=== PATIENT | male | born 1945 | race Caucasian/White ===

== ENCOUNTER 2018-03-13 07:27 | Inpatient (IN) | payer BC, OTHER ==
[2018-03-04 12:28] VITALS: BMI 29.2
[2018-03-13] MEDS ORDERED: TRANEXAMIC ACID 1000 MG/10 ML VIAL IVPUSH ONE (08:08)
--- NOTE | 2018-03-13 08:20 | HP ---
History & Physical Update - History History: No Change - Physical Physical: No Change - Assessment Assessment: No Change - Plan Plan: No Change (seen by his PMD last week, no changes to his health. complete H &P in chart.)
[2018-03-13] MEDS ORDERED: ROPIVACAINE HCL 0.5% 30ML VIAL ONE (09:33)
[2018-03-13] MEDS ORDERED: MIDAZOLAM HCL 2 MG/2 ML SINGLE DOSE VIAL ONE ×3 (09:33→12:31)
[2018-03-13] MEDS ORDERED: DEXAMETHASONE SOD PHOSPHATE/PF 10 MG/ML SDV ONE (09:33)
[2018-03-13] MEDS ORDERED: VANCOMYCIN 1,000 MG in DEXTROSE 5%-WATER - 250 ML IVPB ONE ×2 (10:00→20:00)
[2018-03-13] MEDS ORDERED: BUPIVACAINE HCL/PF 0.5% (5MG/ML) 10 ML VIAL ONE (10:05)
[2018-03-13] MEDS ORDERED: SUCCINYLCHOLINE CHLORIDE 200 MG/10 ML VIAL ONE (10:07)
[2018-03-13] MEDS ORDERED: PROPOFOL 20 ML ONE ×2 (10:07→12:25)
[2018-03-13] MEDS ORDERED: CEFAZOLIN 2 GM in DEXTROSE 5%-WATER - 100 ML IVPB ONE (10:15)
[2018-03-13] MEDS ORDERED: DEXAMETHASONE SOD PHOSPHATE 4 MG/1 ML VIAL ONE (11:22)
[2018-03-13] MEDS ORDERED: ceFAZolin SODIUM 1 GM VIAL ONE ×2 (11:22→12:48)
[2018-03-13] MEDS ORDERED: ONDANSETRON 4 MG/2 ML VIAL ONE ×2 (11:22→14:34)
[2018-03-13] MEDS ORDERED: TRANEXAMIC ACID 1000 MG/10 ML VIAL ONE ×2 (11:22→12:52)
--- NOTE | 2018-03-13 11:22 | OP ---
Operative Note - Note: Operative Date: 03/13/18 Pre-Operative Diagnosis: Right hip DJD Operation: Right total hip replacement Implants: Harsha. Cup - Tritanium, 48mm. Poly - 28mm, neutral. Stem - Secure Fit Advanced, #6, high offset (127 NSA). Head - 28mm, standard, Ceramic/ Biolox Surgeon: Alejandro Cotton Customer Strategy Manager: Tyler Cotton Anesthesiologist/CURING BIN OPERATOR: Jacob Churchill Anesthesia: General, Spinal Specimens Removed: Right femoral head Estimated Blood Loss (mls): 150 Drains & Tubes with Location: 1 x deep & 1 x superficial HemoVac Fluid Volume Replaced (mls): 1,000 (Crystalloid) Operative Report Dictated: Yes
[2018-03-13] MEDS ORDERED: BENZOIN/ALOE VERA/STORAX/TOLU 58 ML BOTTLE ONE ×2 (11:24→13:01)
--- NOTE | 2018-03-13 11:24 | PN ---
Progress Note (short form) - Note Progress Note: 72F s/p right total hip replacement (anterolateral approach) POD #0. -Pain control. -DVT PPx: -Mechanical: FANTA's, SCD's. -Chemical: ASA 325mg PO BID x 6 weeks. -Incentive spirometry. -PT/OT/Rehab, OOB. -WBAT RLE. -Posterior hip precautions. -Hip abduction pillow. -Diet as tolerated. -f/u drain output. -f/u post-op TOV. -f/u AM labs. -Care per medical hospitalist team. -Discharge planning. -Will follow. Alejandro Cotton MD (Orthopaedic Surgery).
[2018-03-13] MEDS ORDERED: MAG HYDROX/AL HYDROX/SIMETH 30 ML UNIT-DOSE CUP PO PRN (11:25)
[2018-03-13] MEDS ORDERED: MAGNESIUM HYDROX 2400MG/30ML ORAL SUSPENSION 30 ML CUP PO PRN (11:25)
[2018-03-13] MEDS ORDERED: ONDANSETRON 4 MG/2 ML VIAL IVPUSH PRN (11:25)
[2018-03-13] MEDS ORDERED: VANCOMYCIN 1,000 MG VIAL (RESTRICTED TO ID ONLY) ONE (11:28)
[2018-03-13] MEDS ORDERED: LACTATED RINGERS SOLUTION 1,000 ML IV SCH (11:30)
[2018-03-13] MEDS ORDERED: ePHEDrine SULFATE 50 MG/1 ML AMPULE ONE (11:30)
[2018-03-13] MEDS: ACETAMINOPHEN 325 MG TABLET (FP) PO SCH ×2 (14:39→20:00)
[2018-03-13] MEDS: oxyCODONE HCL 5 MG TABLET PO PRN ×4 (15:00→23:33)
[2018-03-13] MEDS ORDERED: oxyCODONE HCL 5 MG TABLET ONE (15:06)
--- NOTE | 2018-03-13 15:51 | PN ---
Progress Note (short form) - Note Progress Note: 72M s/p right total hip replacement (anterolateral approach) POD #0. -Pain control. -DVT PPx: -Mechanical: FANTA's, SCD's. -Chemical: ASA 81mg PO BID x 6 weeks. -Incentive spirometry. -PT/OT/Rehab, OOB. -WBAT RLE. -Posterior hip precautions. -Hip abduction pillow. -Diet as tolerated. -f/u drain output. -f/u post-op TOV. -f/u AM labs. -Care per medical hospitalist team. -Discharge planning. -Will follow. Alejandro Cotton MD (Orthopaedic Surgery).
--- NOTE | 2018-03-13 15:52 | OP ---
DATE OF OPERATION: 03/13/2018 SURGEON: Alejandro Cotton MD MEAT HANGER: Tyler Cotton MD PREOPERATIVE DIAGNOSIS: Osteoarthritis, right hip. POSTOPERATIVE DIAGNOSIS: Osteoarthritis, right hip. OPERATION PERFORMED: Right cemented total hip arthroplasty. ANTIBIOTICS GIVEN: Kefzol 2 g and vancomycin 1 g preoperative, Kefzol 1 g given at the time of the seating of the femoral component. ANESTHESIA: Spinal anesthetic with conscious sedation. The right lower extremity was prepped, free draped in the routine manner with Betadine scrub solution, wiped with alcohol, DuraPrep applied. The skin was opened with a routine skin knife. The subcutaneous dissection was facilitated with Bovie. Hemostasis was achieved. The fascia was opened, the hip abductor mechanism clearly visualized. A Charnley retractor was placed in a subfascial plane. An anterior bias direct lateral approach utilized, splitting the fibers of gluteus medius down to the actual bone bed. The capsule of the hip joint was identified. A superolateral to inferomedial cut was made. Radial cuts were made into the capsule. The hip was abducted, externally rotated, neck cut was made in accordance with the principles of Charnley 1 cm above the lesser trochanter. Anterior, posterior, inferior, superior retractors inserted. The acetabular bone was then reamed to size 51 and size 52. Tritanium plastic cup inserted. The cup was closed and virtually 0 anteversion placed on the cup. Once this had been completed, and the cup and with bottom had solid press-fit fixation, the cup was inserted, 28-mm liner, to the acetabular shell. Once this had been completed, all retractors were removed. The hip was then flexed, abducted, and externally rotated. The hip abductor mechanism was held out of harm's way with a sharp Hohmann. The box cut was made proximally, broaching to size 6 was performed, and size 6 Secur-Fit Advanced stem inserted. High offset was 127 mm neck shaft angle. The head measured 0. Once this had been performed, the hip was reduced, found to be completely safe in accord with all parameters, with flexion , abduction, internal rotation, extension, external rotation. The wounds were thoroughly lavaged, the definitive ceramic head inserted. Closure of hip abductor fascia with 1 Vicryl, subcutaneous 1 and 2-0 Vicryl, skin 3-0 Monocryl with Steri-Strips. Drainage: A 1/8-inch Hemovac x1. No complications. MD SUNNY Wade/[id number] MTDD
--- NOTE | 2018-03-13 15:54 | OP ---
Operative Note - Note: Operative Date: 03/13/18 Pre-Operative Diagnosis: Right hip DJD Operation: Right total hip replacement Implants: Harsha. Cup - Tritanium, 46mm. Poly - 28mm, neutral. Stem - SecureFit Advanced, #6, high offset (127 degree NSA). Head - 28mm, standard, Biolox/Ceramic Post-Operative Diagnosis: Same as Pre-op Surgeon: Alejandro Cotton Biochemical Development Engineer: Tyler Cotton Anesthesiologist/RADIOTELEGRAPH OPERATOR: Nestor Sol Anesthesia: Spinal Specimens Removed: Right femoral head Estimated Blood Loss (mls): 100 Drains & Tubes with Location: 1 x deep HemoVac Operative Report Dictated: Yes
[2018-03-13] MEDS ORDERED: amLODIPine BESYLATE 5 MG TABLET (FP) PO ONE (16:15)
[2018-03-13] MEDS ORDERED: METOPROLOL TARTRATE 25 MG TABLET (FP) PO ONE (16:15)
[2018-03-13] MEDS ORDERED: CEFAZOLIN 1 GM/D5W 50 ML IVPB SCH (18:00)
[2018-03-13] MEDS: CEFAZOLIN 2 GM/D5W 2 GM/50 ML ML IVPB SCH (20:00)
[2018-03-13] MEDS: ASPIRIN 325 MG TABLET PO SCH (21:35)
[2018-03-13] MEDS: RANOLAZINE E.R. 500 MG TABLET (FP) PO SCH (21:35)
[2018-03-13] MEDS: SENNOSIDES/DOCUSATE COMBO (SENNA PLUS) TABLET (UD) PO SCH (21:35)
[2018-03-13] MEDS: oxyCODONE HCL 10 MG SUSTAINED ACTING TABLET PO SCH (21:35)
[2018-03-13] MEDS ORDERED: VANCOMYCIN 1 GRAM (PRE-DOCKED) 1,000 MG/250 ML BAG IVPB ONE (23:00)
[2018-03-14] MEDS: ACETAMINOPHEN 325 MG TABLET (FP) PO SCH ×4 (04:08→21:33)
[2018-03-14] MEDS: CEFAZOLIN 2 GM/D5W 2 GM/50 ML ML IVPB SCH (04:08)
[2018-03-14] MEDS: oxyCODONE HCL 5 MG TABLET PO PRN ×3 (05:36→17:25)
[2018-03-14 08:10] LABS: HEMATOCRIT 31.4 % (35.4-49); HEMOGLOBIN 10.1 GM/dl (11.7-16.9); MCH 24.3 pg (25.7-33.7); MCHC 32.4 g/dl (32.0-35.9); MEAN CELL VOLUME 75.1 fl (80-96); MEAN PLT VOLUME 7.2 fl (7.5-11.1); PLATELET COUNT 255 K/MM3 (134-434); RBC 4.18 M/mm3 (4.00-5.60); RDW 17.9 % (11.9-15.9); WHITE BLOOD COUNT 13.1 K/mm3 (4.0-10.8)
[2018-03-14 08:18] LABS: ADD RBC MORPHOLOGY YES
[2018-03-14 09:23] LABS: BLOOD UREA NITROGEN 15 mg/dl (7-18); CREATININE 0.9 mg/dl (0.6-1.3); GLUCOSE,RANDOM 140 mg/dl (74-106); SODIUM 134 mmol/L (136-145)
[2018-03-14 09:24] LABS: ANION GAP 7 (8-16); CALCIUM 8.7 mg/dl (8.4-10.2); CHLORIDE 102 mmol/L (98-107); CO2 25 mmol/L (22-28); POTASSIUM 4.5 mmol/L (3.5-5.1)
[2018-03-14] MEDS: ASPIRIN 325 MG TABLET PO SCH ×2 (10:09→21:33)
[2018-03-14] MEDS: oxyCODONE HCL 10 MG SUSTAINED ACTING TABLET PO SCH ×2 (10:09→21:32)
[2018-03-14] MEDS: amLODIPine BESYLATE 5 MG TABLET (FP) PO SCH (10:10)
[2018-03-14] MEDS: RANOLAZINE E.R. 500 MG TABLET (FP) PO SCH ×2 (10:10→21:33)
[2018-03-14] MEDS: SENNOSIDES/DOCUSATE COMBO (SENNA PLUS) TABLET (UD) PO SCH ×2 (10:10→21:33)
[2018-03-14] MEDS: metoPROLOL SUCCINATE 25 MG TAB.SR.24H (FP) PO SCH (10:10)
[2018-03-14] MEDS: PANTOPRAZOLE 40 MG TABLET (FP) PO SCH (10:10)
--- NOTE | 2018-03-14 11:56 | CONSULT ---
Consultation: REQUESTING PROVIDER: Dr Cotton CONSULT REQUEST: We have been asked to medically evaluate this patient for medical management. HISTORY OF PRESENT ILLNESS: Patient is a 72 y/o male with a past medical history of CATHI, coliits, gout, htn, gerd, ashd, patient was admitted to the medical surgical after an elective right total hip replacement, Dr Cotton. REVIEW OF SYSTEMS: CONSTITUTIONAL: Absent: fever, chills, diaphoresis, generalized weakness, malaise, loss of appetite, weight change HEENT: Absent: rhinorrhea, nasal congestion, throat pain, throat swelling, difficulty swallowing, mouth swelling, ear pain, eye pain, visual changes CARDIOVASCULAR: Absent: chest pain, syncope, palpitations, irregular heart rate, lightheadedness , peripheral edema RESPIRATORY: Absent: cough, shortness of breath, dyspnea with exertion, orthopnea, wheezing, stridor, hemoptysis GASTROINTESTINAL: Absent: abdominal pain, abdominal distension, nausea, vomiting, diarrhea, constipation, melena, hematochezia GENITOURINARY: Absent: dysuria, frequency, urgency, hesitancy, hematuria, flank pain, genital pain MUSCULOSKELETAL: Present: right hip pain Absent: myalgia, arthralgia, joint swelling, back pain, neck pain SKIN: Absent: rash, itching, pallor HEMATOLOGIC/IMMUNOLOGIC: Absent: easy bleeding, easy bruising, lymphadenopathy, frequent infections ENDOCRINE: Absent: unexplained weight gain, unexplained weight loss, heat intolerance, cold intolerance NEUROLOGIC: Absent: headache, focal weakness or paresthesias, dizziness, unsteady gait, seizure, mental status changes, bladder or bowel incontinence PSYCHIATRIC: Absent: anxiety, depression, suicidal or homicidal ideation, hallucinations. PHYSICAL EXAMINATION Vital Signs - 24 hr 03/13/18 03/13/18 03/13/18 14:15 14:19 14:20 Temperature 98 F Pulse Rate 84 84 82 Respiratory 20 18 20 Rate Blood Pressure 156/63 153/72 145/63 O2 Sat by Pulse 99 98 99 Oximetry (%) 03/13/18 03/13/18 03/13/18 14:21 14:25 14:40 Temperature 99.1 F Pulse Rate 77 70 69 Respiratory 18 20 20 Rate Blood Pressure 181/74 152/66 159/78 O2 Sat by Pulse 99 98 Oximetry (%) 03/13/18 03/13/18 03/13/18 14:55 15:07 16:35 Temperature 98.0 F Pulse Rate 85 75 100 H Respiratory 20 20 18 Rate Blood Pressure 160/72 153/90 181/85 O2 Sat by Pulse 97 99 97 Oximetry (%) 03/13/18 03/13/18 03/13/18 21:00 22:51 23:00 Temperature 98.7 F Pulse Rate 80 Respiratory 18 20 18 Rate Blood Pressure 150/61 O2 Sat by Pulse 97 Oximetry (%) 03/14/18 03/14/18 03:00 06:46 Temperature 97.6 F Pulse Rate 83 Respiratory 20 Rate Blood Pressure 166/61 O2 Sat by Pulse 96 Oximetry (%) GENERAL: Awake, alert, and fully oriented, in no acute distress. HEAD: Normal with no signs of trauma. EYES: Pupils equal, round and reactive to light, extraocular movements intact, sclera anicteric, conjunctiva clear. No lid lag. EARS, NOSE, THROAT: Ears normal, nares patent, oropharynx clear without exudates. Moist mucous membranes. NECK: Normal range of motion, supple without lymphadenopathy, JVD, or masses. LUNGS: Breath sounds equal, clear to auscultation bilaterally. No wheezes, and no crackles. No accessory muscle use. HEART: Regular rate and rhythm, normal S1 and S2 without murmur, rub or gallop. ABDOMEN: Soft, nontender, not distended, normoactive bowel sounds, no guarding, no rebound, no masses. No hepatomegaly or splenomegaly. MUSCULOSKELETAL: Normal range of motion at all joints. No bony deformities or tenderness. No CVA tenderness. UPPER EXTREMITIES: 2+ pulses, warm, well-perfused. No cyanosis. No clubbing. Cap refill <2 seconds. No peripheral edema. LOWER EXTREMITIES: 2+ pulses, warm, well-perfused. No calf tenderness. No peripheral edema RIGHT LOWER EXTREMITY: dressing noted to right lateral hip, CDI, hip abductor pillow in place, hemovac drain noted, sangenous drainage, less than 3 second capillary refill, +3 pedal pulse. NEUROLOGICAL: Cranial nerves II-XII intact. Normal speech. Normal gait. PSYCHIATRIC: Cooperative. Good eye contact. Appropriate mood and affect. SKIN: Warm, dry, normal turgor, no rashes or lesions noted. Laboratory Results - last 24 hr 03/14/18 03/14/18 07:20 07:20 WBC 13.1 H RBC 4.18 Hgb 10.1 L Hct 31.4 L MCV 75.1 L MCH 24.3 L MCHC 32.4 RDW 17.9 H Plt Count 255 MPV 7.2 L Sodium 134 L Potassium 4.5 Chloride 102 Carbon Dioxide 25 Anion Gap 7 L BUN 15 Creatinine 0.9 Random Glucose 140 H Calcium 8.7 Active Medications Generic Name Dose Route Start Last Admin Trade Name Freq PRN Reason Stop Dose Admin Acetaminophen 650 mg 03/13/18 14:00 03/14/18 08:42 Tylenol - PO 03/16/18 13:59 650 mg Q6H GLORIA Administration Al Hydroxide/Mg Hydroxide 30 ml 03/13/18 11:25 Mylanta Oral Suspension - PO Q4H PRN DYSPEPSIA Amlodipine Besylate 5 mg 03/14/18 10:00 03/14/18 10:10 Norvasc - PO 5 mg DAILY GLORIA Administration Aspirin 325 mg 03/13/18 22:00 03/14/18 10:09 Asa - PO 325 mg BID GLORIA Administration Magnesium Hydroxide 30 ml 03/13/18 11:25 Milk Of Magnesia - PO PRN PRN CONSTIPATION Metoprolol Succinate 25 mg 03/14/18 10:00 03/14/18 10:10 Toprol Xl - PO 25 mg DAILY GLORIA Administration Ondansetron HCl 4 mg 03/13/18 11:25 Zofran Injection IVPUSH Q6H PRN NAUSEA Oxycodone HCl 5 mg 03/13/18 13:51 03/13/18 16:11 Roxicodone - PO 5 mg Q3H PRN Administration PAIN LEVEL 1-5 Oxycodone HCl 10 mg 03/13/18 13:51 03/14/18 08:42 Roxicodone - PO 10 mg Q3H PRN Administration PAIN LEVEL 6-10 Oxycodone HCl 10 mg 03/13/18 22:00 03/14/18 10:09 Oxycontin - PO 03/16/18 13:51 10 mg BID GLORIA Administration Pantoprazole Sodium 40 mg 03/14/18 10:00 03/14/18 10:10 Protonix - PO 40 mg DAILY GLORIA Administration Ranolazine 500 mg 03/13/18 22:00 03/14/18 10:10 Ranexa - PO 500 mg BID GLORIA Administration Senna/Docusate Sodium 2 tablet 03/13/18 22:00 03/14/18 10:10 Pericolace - PO 2 tablet BID GLORIA Administration ASSESSMENT/PLAN: 1) ms right hip replacement, Post op 1 - prn pain medication - hgb 10.1 stable - physical therapy as per orthopedist 2)cardiovascular hypertension - b/p slightly above goal, secondary to pain, continue home medications strict monitoring ashd - continue ranexa 3) GI gerd - continue protonix Dispo: We will continue to follow the patient. Thank you for this consultative opportunity. Visit type - Emergency Visit Emergency Visit: No - New Patient This patient is new to me today: Yes Date on this admission: 03/14/18 - Critical Care Critical Care patient: No
--- NOTE | 2018-03-14 14:01 | PN ---
Progress Note (short form) - Note Progress Note: 72M POD1 s/p R THR under spinal anesthetic with peripheral nerve blocks for post operative pain relief. Pt states that pain is well controlled, reports no anesthetic complications. AVSS. Motor and sensory function intact in bilateral lower extremities. Continue current regimen.
[2018-03-14 17:22] LABS: ANISOCYTOSIS 1+
[2018-03-15] MEDS: ACETAMINOPHEN 325 MG TABLET (FP) PO SCH ×2 (02:00→08:57)
[2018-03-15 06:50] VITALS: PULSE 70
[2018-03-15] MEDS: oxyCODONE HCL 5 MG TABLET PO PRN (07:32)
[2018-03-15 08:51] LABS: HEMATOCRIT 30.8 % (35.4-49); HEMOGLOBIN 9.6 GM/dl (11.7-16.9); MCH 23.7 pg (25.7-33.7); MCHC 31.3 g/dl (32.0-35.9); MEAN CELL VOLUME 75.7 fl (80-96); MEAN PLT VOLUME 7.7 fl (7.5-11.1); PLATELET COUNT 230 K/MM3 (134-434); RBC 4.06 M/mm3 (4.00-5.60); RDW 18.6 % (11.9-15.9); WHITE BLOOD COUNT 10.2 K/mm3 (4.0-10.8)
[2018-03-15] MEDS: ASPIRIN 325 MG TABLET PO SCH ×2 (08:57→09:00)
[2018-03-15] MEDS: metoPROLOL SUCCINATE 25 MG TAB.SR.24H (FP) PO SCH ×2 (08:58→08:59)
[2018-03-15] MEDS: PANTOPRAZOLE 40 MG TABLET (FP) PO SCH ×2 (08:58→08:59)
[2018-03-15] MEDS: RANOLAZINE E.R. 500 MG TABLET (FP) PO SCH ×2 (08:58→09:00)
[2018-03-15] MEDS: SENNOSIDES/DOCUSATE COMBO (SENNA PLUS) TABLET (UD) PO SCH ×2 (08:58→08:59)
[2018-03-15] MEDS: oxyCODONE HCL 10 MG SUSTAINED ACTING TABLET PO SCH ×2 (08:58→10:43)
[2018-03-15] MEDS: amLODIPine BESYLATE 5 MG TABLET (FP) PO SCH (08:59)
[2018-03-15 09:40] VITALS: BP 128/74; TEMP 98.6
--- NOTE | 2018-03-15 10:15 | DS ---
Physical Exam: SUBJECTIVE: Patient seen and examined, ambulatory at bedside with the assistance of a walker, patient denies any chest pain or shortness of breath, patient denies any paresthesia to the right lower extremity, reports pain is a 3/10 with movement. OBJECTIVE: Patient is a 72 y/o male with a past medical history of CATHI, coliits , gout, htn, gerd, ashd, patient was admitted to the medical surgical after an elective right total hip replacement, Dr Dowling, patient is post operative day 2. Vital Signs Temperature 98.6 F 03/15/18 09:00 Pulse Rate 70 03/15/18 09:00 Respiratory Rate 18 03/15/18 09:00 Blood Pressure 128/74 03/15/18 09:00 O2 Sat by Pulse Oximetry (%) 94 L 03/15/18 06:49 PHYSICAL EXAM GENERAL: The patient is awake, alert, and fully oriented, in no acute distress. HEAD: Normal with no signs of trauma. EYES: PERRL, extraocular movements intact, sclera anicteric, conjunctiva clear. ENT: Ears normal, nares patent, oropharynx clear without exudates, moist mucous membranes. NECK: Trachea midline, full range of motion, supple. LUNGS: Breath sounds equal, clear to auscultation bilaterally, no wheezes, no crackles, no accessory muscle use. HEART: Regular rate and rhythm, S1, S2 without murmur, rub or gallop. ABDOMEN: Soft, nontender, nondistended, normoactive bowel sounds, no guarding, no rebound, no hepatosplenomegaly, no masses. EXTREMITIES: 2+ pulses, warm, well-perfused, no edema. RIGHT LOWER EXTREMITY: hemvoac dressing scant sanginous drainage, abductor pillow in place, less than 3 second capillary refill, +3 pedal pulse NEUROLOGICAL: Cranial nerves II through XII grossly intact. Normal speech, gait not observed. PSYCH: Normal mood, normal affect. SKIN: Warm, dry, normal turgor, no rashes or lesions noted. LABS CBC,CMP WBC 10.2 K/mm3 (4.0-10.8) 03/15/18 07:45 RBC 4.06 M/mm3 (4.00-5.60) 03/15/18 07:45 Hgb 9.6 GM/dl (11.7-16.9) L 03/15/18 07:45 Hct 30.8 % (35.4-49) L 03/15/18 07:45 MCV 75.7 fl (80-96) L 03/15/18 07:45 MCH 23.7 pg (25.7-33.7) L 03/15/18 07:45 MCHC 31.3 g/dl (32.0-35.9) L 03/15/18 07:45 RDW 18.6 % (11.9-15.9) H 03/15/18 07:45 Plt Count 230 K/MM3 (134-434) 03/15/18 07:45 MPV 7.7 fl (7.5-11.1) 03/15/18 07:45 Hypochromia 1+ 03/14/18 07:20 Platelet Comment 03/14/18 07:20 Polychromasia 1+ 03/14/18 07:20 Anisocytosis 1+ 03/14/18 07:20 Tee Cells 1+ 03/14/18 07:20 Sodium 134 mmol/L (136-145) L 03/14/18 07:20 Potassium 4.5 mmol/L (3.5-5.1) 03/14/18 07:20 Chloride 102 mmol/L (98-107) 03/14/18 07:20 Carbon Dioxide 25 mmol/L (22-28) 03/14/18 07:20 Anion Gap 7 (8-16) L 03/14/18 07:20 BUN 15 mg/dl (7-18) 03/14/18 07:20 Creatinine 0.9 mg/dl (0.6-1.3) 03/14/18 07:20 Random Glucose 140 mg/dl (74-106) H 03/14/18 07:20 Calcium 8.7 mg/dl (8.4-10.2) 03/14/18 07:20 HOSPITAL COURSE: The patient was admitted to the Med-Surg Unit after an elective right total hip replacement, Dr dowling, spinal anesthesia. On post operative day 1, the patient ambulated the hallways with assistance. Narcotic and non-narcotic pain management control was achieved with an oral and IV approach. POD #2, the surgical drain was removed fully intact and without incident. Jane-operative IV ABX were administered. DVT prophylaxis was achieved with SCDs and early ambulation. The patient ambulated with Physical Therapy and will be transferred to [facility] for short term rehab. The discharge instructions and an oral pain management plan were reviewed with the patient. All questions answered. Above plan discussed with Dr. Dowling and agreed. Date of Admission:03/13/18 Date of Discharge: 03/15/18 Minutes to complete discharge: 45 Visit type - Case Type Case Type: Scheduled Admission - Emergency Emergency Visit: No - New patient This patient is new to me today: No - Critical Care Critical Care patient: No
--- NOTE | 2018-03-20 12:49 | PATH ---
Surgical Pathology Report Patient Name: TRISTIN PEDROZA Med. Rec. #: [id number] /Age/Gender: 1945 (Age: 72) / M Account: [id number] Location: [facility] MED-SURG Taken: 03/13/2018 Received: 03/13/2018 Reported: 03/20/2018 Physicians: Alejandro Cotton M.D. Specimen(s) Received RIGHT FEMORAL HEAD Clinical History Unilateral osteoarthritis right hip Final Diagnosis FEMORAL HEAD, RIGHT, TOTAL HIP REPLACEMENT: DEGENERATIVE JOINT DISEASE. Electronically Signed Rasheeda Naranjo M.D. Gross Description Received in formalin, labeled "right femoral head," is a 4.6 x 4.6 x 4.1 cm. femoral head with a 0.7 cm in length portion of femoral neck attached. The margin of resection is smooth. There is a 4.4 cm greatest dimension area of eburnation present. The remaining articular surface is bañuelos-yellow and diffusely granular. The underlying trabecular bone is yellow and hard. A manufacturers representative section is submitted in one cassette, following decalcification. 03/14/2018 [facility]03/14/2018
== END 2018-03-15 12:30 | DRG 470 ==
LOC: FM/S 07:27
PROVIDERS: ADMIT Orthopaedic Surgery Orthopaedic Surgery of the Spine; ATTEND Orthopaedic Surgery Orthopaedic Surgery of the Spine
PROC: 0SRC069 Replacement of Right Knee Joint with Oxidized Zirconium on Polyethylene Synthetic Substitute, Cemented, Open Approach (ICD-10-PCS; principal; 2018-03-13 11:57)
DX: M16.11 Unilateral primary osteoarthritis, right hip (principal); G47.33 Obstructive sleep apnea (adult) (pediatric); I10 Essential (primary) hypertension; K21.9 Gastro-esophageal reflux disease without esophagitis; I25.10 Atherosclerotic heart disease of native coronary artery without angina pectoris; M10.9 Gout, unspecified
CPT/HCPCS: 36415; 73523-TC-FY; 80048; 85027; 88304-TC; 88311-TC; 94760; 97116-GP; 97162-GP

== ENCOUNTER 2020-01-02 10:21 | Day surgery (SDC) | payer BC ==
[2020-01-02] MEDS ORDERED: CEFAZOLIN 2 GM in DEXTROSE 5%-WATER - 50 ML IVPB ONE (10:32)
[2020-01-02] MEDS ORDERED: VANCOMYCIN 1,000 MG in DEXTROSE 5%-WATER - 250 ML IVPB ONE (10:32)
[2020-01-02] MEDS ORDERED: MIDAZOLAM HCL 2 MG/2 ML SINGLE DOSE VIAL ONE (14:36)
[2020-01-02] MEDS ORDERED: PROPOFOL 20 ML ONE (14:37)
[2020-01-02] MEDS ORDERED: ACETAMINOPHEN 1000 MG/100 ML VIAL (NON FORMULARY) IVPB ONE (16:22)
[2020-01-02] MEDS ORDERED: NYSTATIN 100000 UNIT/GM TOPICAL OINTMENT 15 GM TUBE TP PRN (16:22)
[2020-01-02] MEDS ORDERED: CYCLOBENZAPRINE HCL 10 MG TABLET (FP) PO PRN (16:22)
[2020-01-02] MEDS ORDERED: ONDANSETRON 4 MG/2 ML VIAL IVPUSH PRN (16:23)
[2020-01-02] MEDS ORDERED: morphine CARPU-JECT 2 MG/1 ML DISP.SYRIN IVPUSH PRN (16:23)
[2020-01-02] MEDS ORDERED: PROMETHAZINE HCL 25 MG/1 ML VIAL IVPUSH PRN (16:23)
[2020-01-02] MEDS ORDERED: oxyCODONE HCL 5 MG TABLET PO PRN ×2 (16:26)
--- NOTE | 2020-01-02 16:28 | OP ---
Operative Note - Note: Pre-Operative Diagnosis: Painful soft tissue tumor left distal lateral thigh Operation: Open excisional biopsy of left distal lateral femur Findings: Possible surface hemangioma femur Post-Operative Diagnosis: Same as Pre-op Surgeon: Alejandro Cotton Loan Funder: Tyrel Sanchez Anesthesiologist/ENGINEER SYSTEM ADMINISTRATOR: Saul Miller Anesthesia: General Specimens Removed: Possible surface hemangioma femur and surrounding tissue Estimated Blood Loss (mls): 15 Fluid Volume Replaced (mls): 500 Operative Report Dictated: Yes
[2020-01-02] MEDS ORDERED: DESONIDE TP SCH (16:30)
--- NOTE | 2020-01-02 16:30 | SURG ---
Surgery Drop Forger Note Drop Forger: Tyrel Sanhcez PA-C Date of Service: 01/02/20 Diagnosis: Painful soft tissue tumor left distal lateral thigh Procedure: Open excisional biopsy of left distal lateral femur I was present for the entirety of the operative procedure. For further detail, please refer to operative report. Visit type - Case Type Case Type: Scheduled - New patient This patient is new to me today: Yes Date on this admission: 01/02/20
--- NOTE | 2020-01-02 17:10 | OP ---
DATE OF OPERATION: 01/02/2020 SURGEON: Alejandro Cotton MD. METALS ANALYST: SID Kaur. PREOPERATIVE DIAGNOSIS: Painful lesion, distal lateral femur on surface of bone. POSTOPERATIVE DIAGNOSIS: Questionable hemangioma on surface of bone distal anterior metaphyseal region of femur, left. ANESTHESIA: General. ANTIBIOTICS GIVEN: 2 g Ancef. OPERATION DETAILS: With the patient in lateral decubitus position left side up , a left free drape was applied. The skin was prepped with Betadine scrub solution, wiped off with alcohol, DuraPrep applied. An incision was made over the exact area of the distal thigh. This was just anterior to what appeared to be the iliotibial band. The fascia was opened, and the vastus lateralis muscle was identified. This was gently lifted off the intermuscular septum and interiorized to gain access to the soft tissue elements under the muscle but right directly on the surface of the lateral femur. The area was explored extensively. I excised the soft tissue bed of the lateral inspect the bone bed itself, and as I dissected anteriorly, abnormal hemangiomatous looking material, that is a mixture of what appeared to be vascular and fatty material which was different tissue and fairly firm in nature was resected and sent to the lab for histopathology. The wounds were fairly lavaged off, hemostasis was achieved. Closure of fascia 1 Vicryl, subcutaneous 1 and 2-0 Vicryl, skin 3 -0 Monocryl, Steri-Strips. Drainage 1-inch Hemovac x1. Patient will be kept overnight for 23-hour overnight stay. MD SUNNY Wade/[id number] MTDSergio
[2020-01-02] MEDS: traMADol HCL 50 MG TABLET PO SCH ×2 (18:07→21:59)
--- NOTE | 2020-01-02 21:11 | HP ---
HISTORY OF PRESENT ILLNESS: 74 year-old male with a PMH significant for HTN, CAD, GERD, colitis, gout, and CATHI. Underwent open excisional biopsy of left distal lateral femur earlier today with Dr. Alejandro Cotton. Recent Travel: No PAST MEDICAL HISTORY: Hypertension Coronary artery disease GERD Colitis Gout CATHI PAST SURGICAL HISTORY: Right total hip replacement 02/2018 Social History: Smoking: Alcohol: Drugs: Allergies No Known Allergies Allergy (Verified 01/02/20 10:43) HOME MEDICATIONS: Home Medications Medication Instructions Recorded Allopurinol 300 mg PO DAILY 03/04/18 Amlodipine Besylate 5 mg PO DAILY 03/04/18 Metoprolol Succinate [Toprol Xl] 25 mg PO DAILY 03/04/18 Ranolazine [Ranexa] 500 mg PO BID 03/04/18 Sulfasalazine [Azulfidine En-Tabs 500 mg PO BID 03/04/18 -] Acetaminophen [Tylenol .Regular 650 mg PO Q6H tablet 03/15/18 Strength -] Pantoprazole Sodium [Protonix -] 40 mg PO DAILY tablet.ec 03/15/18 Cyclobenzaprine HCl [Flexeril -] 10 mg PO HS PRN 12/18/19 Desonide 59 ml TP WEEKLY 12/18/19 Losartan Potassium [Cozaar -] 50 mg PO DAILY 12/18/19 Naproxen Sodium [Naproxen Sodium 500 mg PO HS 12/18/19 ER] Naproxen [Naprosyn] 500 mg PO DAILY 12/18/19 Nystatin Ointment [Mycostatin 1 applic TP TID PRN 12/18/19 Ointment -] Tramadol HCl 50 mg PO DAILY 12/18/19 Niacin/Simvastatin [Simcor 500-20 1 tab PO DAILY 12/19/19 mg Tablet] REVIEW OF SYSTEMS CONSTITUTIONAL: Absent: fever, chills, diaphoresis, generalized weakness, malaise, loss of appetite, weight change HEENT: Absent: rhinorrhea, nasal congestion, throat pain, throat swelling, difficulty swallowing, mouth swelling, ear pain, eye pain, visual changes CARDIOVASCULAR: Absent: chest pain, syncope, palpitations, irregular heart rate, lightheadedness , peripheral edema RESPIRATORY: Absent: cough, shortness of breath, dyspnea with exertion, orthopnea, wheezing, stridor, hemoptysis GASTROINTESTINAL: Absent: abdominal pain, abdominal distension, nausea, vomiting, diarrhea, constipation, melena, hematochezia GENITOURINARY: Absent: dysuria, frequency, urgency, hesitancy, hematuria, flank pain, genital pain MUSCULOSKELETAL: Absent: myalgia, arthralgia, joint swelling, back pain, neck pain SKIN: Absent: rash, itching, pallor HEMATOLOGIC/IMMUNOLOGIC: Absent: easy bleeding, easy bruising, lymphadenopathy, frequent infections ENDOCRINE: Absent: unexplained weight gain, unexplained weight loss, heat intolerance, cold intolerance NEUROLOGIC: Absent: headache, focal weakness or paresthesias, dizziness, unsteady gait, seizure, mental status changes, bladder or bowel incontinence PSYCHIATRIC: Absent: anxiety, depression, suicidal or homicidal ideation, hallucinations. PHYSICAL EXAMINATION Vital Signs - 24 hr 01/02/20 01/02/20 01/02/20 10:37 10:57 16:20 Temperature 98.2 F 97.4 F L Pulse Rate 74 63 Respiratory 19 12 Rate Blood Pressure 174/84 H 168/71 O2 Sat by Pulse 97 97 97 Oximetry (%) 01/02/20 01/02/20 01/02/20 16:25 16:30 16:35 Temperature Pulse Rate 62 61 62 Respiratory 12 13 12 Rate Blood Pressure 183/67 H 185/59 H 185/59 H O2 Sat by Pulse 97 97 97 Oximetry (%) 01/02/20 01/02/20 01/02/20 16:50 16:52 17:00 Temperature 97.4 F L 97.4 F L Pulse Rate 64 64 50 L Respiratory 12 12 16 Rate Blood Pressure 180/67 H 180/67 H 159/60 O2 Sat by Pulse 97 97 100 Oximetry (%) 01/02/20 18:22 Temperature 97.4 F L Pulse Rate 50 L Respiratory 16 Rate Blood Pressure 159/60 O2 Sat by Pulse 100 Oximetry (%) GENERAL: Awake, alert, and fully oriented, in no acute distress. HEAD: Normal with no signs of trauma. EYES: Pupils equal, round and reactive to light, extraocular movements intact, sclera anicteric, conjunctiva clear LUNGS: Breath sounds equal, clear to auscultation bilaterally. No wheezes, and no crackles. No accessory muscle use. HEART: Regular rate and rhythm, normal S1 and S2 ABDOMEN: Soft, nontender, not distended MUSCULOSKELETAL: Normal range of motion at all joints. No bony deformities or tenderness. No CVA tenderness. UPPER EXTREMITIES: 2+ pulses, warm, well-perfused. No cyanosis. No clubbing. No peripheral edema. LEFT LOWER EXTREMITY: 2+ pulses, warm, well-perfused. No calf tenderness. No peripheral edema. Surgical dressing c/d/i, no surrounding erythema, fluctuance; +Hemovac drain NEUROLOGICAL: Cranial nerves II-XII intact. Normal speech. ASSESSMENT/PLAN: 74 year-old male with a PMH significant for HTN, CAD, GERD, colitis, gout, and CATHI. Underwent open excisional biopsy of left distal lateral femur earlier today with Dr. Alejandro Cotton. s/p Open excisional biopsy left distal lateral femur --POD #0 --perioperative antibiotics per surgery --pain management per surgery --protonix --Hemovac drain, monitor output --labs in am Hypertension --continue losartan Coronary artery disease --continue ToprolXL, Ranexa, amlodipine, Lipitor, niacin GERD --protonix Gout --continue allopurinol FEN Fluids: PO intake adequate Electrolytes: replete as indicated Nutrition: regular diet DVT prophylaxis: SCDs, oob, early ambulation Dispo: continues to require inpatient care. Full code. Visit type - Emergency Visit Emergency Visit: No - New Patient This patient is new to me today: Yes Date on this admission: 01/02/20 - Critical Care Critical Care patient: No
[2020-01-02] MEDS ORDERED: ACETAMINOPHEN 325 MG TABLET (FP) PO PRN (21:51)
[2020-01-02] MEDS: RANOLAZINE E.R. 500 MG TABLET (FP) PO SCH (22:00)
[2020-01-02] MEDS ORDERED: ATORVASTATIN CA 10 MG TABLET (FP) PO SCH (22:00)
[2020-01-02] MEDS ORDERED: metoPROLOL SUCCINATE 25 MG TAB.SR.24H (FP) PO SCH (22:02)
[2020-01-02] MEDS ORDERED: amLODIPine BESYLATE 5 MG TABLET (FP) PO SCH (22:02)
[2020-01-02] MEDS ORDERED: LOSARTAN POTASSIUM 50 MG TABLET (FP) PO SCH (22:02)
[2020-01-02] MEDS: LOSARTAN POTASSIUM 50 MG TABLET (FP) PO SCH (22:30)
[2020-01-02] MEDS: metoPROLOL SUCCINATE 25 MG TAB.SR.24H (FP) PO SCH (22:30)
[2020-01-02] MEDS: amLODIPine BESYLATE 5 MG TABLET (FP) PO SCH (22:31)
[2020-01-03] MEDS: traMADol HCL 50 MG TABLET PO SCH ×2 (05:03→11:40)
[2020-01-03 08:55] LABS: HEMATOCRIT 34.8 % (35.4-49); HEMOGLOBIN 11.6 GM/dl (11.7-16.9); MCH 28.5 pg (25.7-33.7); MCHC 33.2 g/dl (32.0-35.9); MEAN CELL VOLUME 85.9 fl (80-96); MEAN PLT VOLUME 7.8 fl (7.5-11.1); PLATELET COUNT 198 K/MM3 (134-434); RBC 4.05 M/mm3 (4.00-5.60); RDW 15.8 % (11.9-15.9); WHITE BLOOD COUNT 8.1 K/mm3 (4.0-10.8)
[2020-01-03] MEDS ORDERED: ALLOPURINOL 300 MG TABLET (FP) PO SCH (10:00)
[2020-01-03] MEDS: amLODIPine BESYLATE 5 MG TABLET (FP) PO SCH (10:00)
[2020-01-03] MEDS: LOSARTAN POTASSIUM 50 MG TABLET (FP) PO SCH (10:00)
[2020-01-03] MEDS: metoPROLOL SUCCINATE 25 MG TAB.SR.24H (FP) PO SCH (10:00)
[2020-01-03] MEDS: RANOLAZINE E.R. 500 MG TABLET (FP) PO SCH (10:00)
[2020-01-03] MEDS ORDERED: amLODIPine BESYLATE 5 MG TABLET (FP) PO SCH (10:00)
[2020-01-03] MEDS ORDERED: NIACIN PO SCH (10:00)
[2020-01-03] MEDS ORDERED: NIACIN 500 MG TABLET PO SCH (10:00)
[2020-01-03] MEDS ORDERED: SIMVASTATIN PO SCH (10:00)
[2020-01-03] MEDS ORDERED: LOSARTAN POTASSIUM 50 MG TABLET (FP) PO SCH (10:00)
[2020-01-03] MEDS ORDERED: PANTOPRAZOLE 40 MG TABLET PO SCH (10:00)
[2020-01-03] MEDS ORDERED: metoPROLOL SUCCINATE 25 MG TAB.SR.24H (FP) PO SCH (10:00)
[2020-01-03] MEDS ORDERED: [UNRECOGNIZED DRUG - OTHER] PO SCH (10:00)
--- NOTE | 2020-01-03 10:01 | DS ---
Physical Exam: SUBJECTIVE: Patient seen and examined OBJECTIVE: Vital Signs Period Temp Pulse Resp BP Sys/Berumen Pulse Ox Last 24 Hr 97.4 F-98.4 F 50-74 12-19 156-185/59-84 97-100 PHYSICAL EXAM GENERAL: Awake, alert, and fully oriented, in no acute distress. HEAD: Normal with no signs of trauma. EYES: Pupils equal, round and reactive to light, extraocular movements intact, sclera anicteric, conjunctiva clear LUNGS: Breath sounds equal, clear to auscultation bilaterally. No wheezes, and no crackles. No accessory muscle use. HEART: Regular rate and rhythm, normal S1 and S2 ABDOMEN: Soft, nontender, not distended MUSCULOSKELETAL: Normal range of motion at all joints. No bony deformities or tenderness. No CVA tenderness. UPPER EXTREMITIES: 2+ pulses, warm, well-perfused. No cyanosis. No clubbing. No peripheral edema. LEFT LOWER EXTREMITY: 2+ pulses, warm, well-perfused. No calf tenderness. No peripheral edema. Surgical dressing c/d/i, no surrounding erythema, fluctuance NEUROLOGICAL: Cranial nerves II-XII intact. Normal speech. LABS Laboratory Results - last 24 hr 01/03/20 07:35 WBC 8.1 RBC 4.05 Hgb 11.6 L Hct 34.8 L MCV 85.9 MCH 28.5 D MCHC 33.2 RDW 15.8 D Plt Count 198 MPV 7.8 HOSPITAL COURSE: Date of Admission:01/02/20 Date of Discharge: 01/03/20 74 year-old male with a PMH significant for HTN, CAD, GERD, colitis, gout, and CATHI. Underwent open excisional biopsy of left distal lateral femur with Dr. Alejandro Cotton. s/p Open excisional biopsy left distal lateral femur --discharged on POD #1 --perioperative antibiotics per surgery complete --pain well-tolerated with PO meds Hypertension --continued losartan Coronary artery disease --continued ToprolXL, Ranexa, amlodipine, Lipitor, niacin GERD --protonix Gout --continued allopurinol Minutes to complete discharge: 35 Discharge Summary Problems reviewed: Yes Reason For Visit: LEFT KNEE OSTEOARTHRITIS Condition: Stable - Instructions Diet, Activity, Other Instructions: It is important you follow up with Dr. Cotton regarding the results of your biopsy. Please call his office on Sunday morning to make an appointment. Return to the hospital for any new or worsening symptoms. Referrals: Tyler Cotton MD [Staff Physician] - Disposition: HOME - Home Medications Comprehensive Discharge Medication List: Ambulatory Orders Allopurinol 300 mg PO DAILY 03/04/18 Amlodipine Besylate 5 mg PO DAILY 03/04/18 Metoprolol Succinate [Toprol Xl] 25 mg PO DAILY 03/04/18 Ranolazine [Ranexa] 500 mg PO BID 03/04/18 Sulfasalazine [Azulfidine En-Tabs -] 500 mg PO BID 03/04/18 Acetaminophen [Tylenol .Regular Strength -] 650 mg PO Q6H tablet 03/15/18 Pantoprazole Sodium [Protonix -] 40 mg PO DAILY tablet.ec 03/15/18 Cyclobenzaprine HCl [Flexeril -] 10 mg PO HS PRN 12/18/19 Desonide 59 ml TP WEEKLY 12/18/19 Losartan Potassium [Cozaar -] 50 mg PO DAILY 12/18/19 Naproxen Sodium [Naproxen Sodium ER] 500 mg PO HS 12/18/19 Naproxen [Naprosyn] 500 mg PO DAILY 12/18/19 Nystatin Ointment [Mycostatin Ointment -] 1 applic TP TID PRN 12/18/19 Tramadol HCl 50 mg PO DAILY 12/18/19 Niacin/Simvastatin [Simcor 500-20 mg Tablet] 1 tab PO DAILY 12/19/19 Prescription Drug Monitoring Program (I-STOP) results: I-STOP reviewed and no issues identified This patient is new to me today: No Emergency Visit: Yes Care time: The patient presented to the Emergency Department on the above date and was hospitalized for further evaluation of their emergent condition. Critical Care patient: No - Discharge Referral Referred to [facility] Med [facility] No
[2020-01-03 11:14] VITALS: BP 162/56; PULSE 71; TEMP 98.2
--- NOTE | 2020-01-03 12:26 | PN ---
Progress Note (short form) - Note Progress Note: POD#1 Comfortable Wound dry Drain removed New dressing applied No sign of VTE Calf and subsartorial tenderness PLAN D/C home Mobilize FWBAT See in office 10 days Keep woumd dry.
--- NOTE | 2020-01-07 17:26 | PATH ---
Surgical Pathology Report Patient Name: TRISTIN PEDROZA Med. Rec. #: [id number] /Age/Gender: 1945 (Age: 74) / M Account: [id number] Location: [facility] MED-SURG Taken: 01/02/2020 Received: 01/03/2020 Reported: 01/07/2020 Physicians: Alejandro Cotton M.D. Specimen(s) Received A: LEFT KNEE SYNOVIAL HEMANGIOMA B: LEFT KNEE TISSUE Clinical History Left knee osteoarthritis Final Diagnosis A. LEFT KNEE SYNOVIAL HEMANGIOMA, EXCISION FIBROVASCULAR TISSUE SHOWING ADMIXTURE OF VESSELS WITH ARTERIES AND VENULES, WITH FOCAL DYSTROPHIC CALCIFICATION IN THE VESSEL WALL, COMPATIBLE WITH ARTERIOVENOUS MALFORMATION. CLINICAL CORRELATION IS RECOMMENDED. B. LEFT KNEETISSUE, RESECTION: PORTIONS OF BENIGN FIBROADIPOSE TISSUE WITH INCREASED THICK WALL VESSELS. SUGGESTED CLINICAL CORRELATION. Electronically Signed Maria Boyer M.D. Gross Description A. Received in formalin labeled "left knee synovial hemangioma," are 2 bañuelos patterson portions of soft tissue measuring 0.4 x 0.4 x 0.2 cm and 1.3 x 0.4 x 0.2 cm. The specimens are submitted in toto in one cassette. B. Received in formalin labeled "left knee tissue," are 2 bañuelos-yellow portions of soft tissue measuring 2.3 x 1.1 x 0.4 cm and 2.0 x 1.6 x 0.4 cm. Firewood Cutter sections are submitted in one cassette. DL/01/05/2020 saudi/01/05/2020
== END 2020-01-03 13:00 | disposition home or self-care (01) ==
LOC: FASUSAT 10:21 → SUATTDRO 10:21 → FASU 10:21 → FM/S 16:22 → FASUSAT 01-03 13:00
PROVIDERS: ATTEND Nurse Practitioner Acute Care
PROC: 0JBM0ZX Excision of Left Upper Leg Subcutaneous Tissue and Fascia, Open Approach, Diagnostic (ICD-10-PCS; 2020-01-02)
PROC: 0KBR0ZZ Excision of Left Upper Leg Muscle, Open Approach (ICD-10-PCS; principal; 2020-01-02 15:05)
DX: D21.22 Benign neoplasm of connective and other soft tissue of left lower limb, including hip (principal)
CPT/HCPCS: 36415; 85027; 88305-TC; 94760; J0131